=== PATIENT | female | born 2005 | race Caucasian/White ===

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

== ENCOUNTER 2024-05-25 06:00 | Emergency (ER) | payer BC, MEDICAID ==
[~2024-05-25] VITALS: Ht 157.5 cm; Wt 56.4 kg
[~2024-05-25 06:00] MED LIST changes: -DOXY-457 PO; -METR-159 PO; +ONDA-243 PO; -ONDA4TAB12 PO
[2024-05-25 06:18] LABS: BILIRUBIN,URINE NEGATIVE (Neg); CLARITY,URINE CLEAR (Clear); COLOR,URINE YELLOW (Yellow); GLUCOSE, URINE NEGATIVE (Neg); KETONES,URINE NEGATIVE (Neg); LEUKOCYTE ESTERASE ,URINE NEGATIVE (Neg); NITRITES, URINE NEGATIVE (Neg); OCCULT BLOOD,URINE NEGATIVE (Neg); PROTEIN,URINE NEGATIVE (Neg); UROBILINOGEN,URINE 0.2 E.U/dL (0.2-1.0)
[2024-05-25 06:19] LABS: UA COLLECTION TYPE NON-SPECIFIED
[2024-05-25 07:33] LABS: BASOPHILS % (AUTO) 0.2 % (0-1); EOSINOPHILS # (AUTO) 0.1 X10'3 (0-0.9); EOSINOPHILS % (AUTO) 0.7 % (0-6); HEMATOCRIT 33.3 % (35.0-45.0); HEMOGLOBIN 11.6 g/dl (12.0-16.0); LYMPHOCYTES # (AUTO) 1.2 X10'3 (1.1-4.8); MEAN CORPUSCULAR HEMOGLOBIN 29.2 PG (27.0-31.0); MEAN CORPUSCULAR VOLUME 83.6 FL (78-98); MEAN PLATELET VOLUME 7.1 FL (7.4-10.4); MONOCYTES # (AUTO) 0.8 X10'3 (0-0.9); MONOCYTES % (AUTO) 7.9 % (2-12); NEUTROPHILS # (AUTO) 7.8 X10'3 (1.8-7.7); NEUTROPHILS % (AUTO) 79.2 % (42-75); PLATELET COUNT 248 X10'3 (140-440); RED BLOOD COUNT 3.98 X10'6 (4.20-5.60); RED CELL DISTRIBUTION WIDTH 13.5 % (11.5-14.5); WHITE BLOOD COUNT 9.8 X10'3 (4.5-11.0)
[2024-05-25 07:48] LABS: ALBUMIN 3.1 G/DL (3.4-5.0); ANION GAP 9 (8-16); BLOOD UREA NITROGEN 9 MG/DL (7-18); BUN/CREATININE RATIO 16.7 (10.0-20.0); CHLORIDE 106 MMOL/L (99-107); CREATININE 0.54 MG/DL (0.40-0.90); GLUCOSE 94 MG/DL (70-104); LIPASE 38 U/L (16-77); POTASSIUM 3.5 MMOL/L (3.5-5.1); SODIUM 140 MMOL/L (135-145); TOTAL CARBON DIOXIDE 24.6 MMOL/L (24-32); eCRCL 131 ML/MIN; eGFR > 90 ML/MIN
[2024-05-25 07:55] LABS: CALCIUM 8.2 MG/DL (8.5-10.1)
[2024-05-25] MEDS ORDERED: ibuprofen 200mg tablet PO ONE (08:15)
[2024-05-25] MEDS: acetaminophen 325mg tablet PO ONE (08:40)
[2024-05-25 08:41] VITALS: BP 110/74; PULSE 78; RESP 14; TEMP 98.1; O2SAT 97
== END 2024-05-25 08:42 | disposition home or self-care (01) ==
LOC: ER 06:01
DX: R10.9 Unspecified abdominal pain (principal)
CPT/HCPCS: 36415; 76700; 80048; 81003; 83690; 85025; 99284

== ENCOUNTER 2024-06-18 01:19 | Emergency (ER) | payer BC, MEDICAID ==
[~2024-06-18] VITALS: Ht 157.5 cm; Wt 56.5 kg
[2024-06-18 01:21] VITALS: BP 100/68; PULSE 103; RESP 18; O2SAT 95
[2024-06-18 01:42] LABS: URINE HCG POSITIVE (NEG)
[2024-06-18 01:51] LABS: BILIRUBIN,URINE NEGATIVE (Neg); CLARITY,URINE CLOUDY (Clear); COLOR,URINE YELLOW (Yellow); GLUCOSE, URINE NEGATIVE (Neg); KETONES,URINE NEGATIVE (Neg); LEUKOCYTE ESTERASE ,URINE NEGATIVE (Neg); NITRITES, URINE NEGATIVE (Neg); OCCULT BLOOD,URINE NEGATIVE (Neg); PROTEIN,URINE NEGATIVE (Neg); UROBILINOGEN,URINE 0.2 E.U/dL (0.2-1.0)
[2024-06-18 01:55] LABS: BASOPHILS % (AUTO) 0.5 % (0-1); EOSINOPHILS % (AUTO) 0.2 % (0-6); HEMATOCRIT 35.8 % (35.0-45.0); HEMOGLOBIN 12.5 g/dl (12.0-16.0); LYMPHOCYTES % (AUTO) 12.7 % (21-51); MEAN CORPUSCULAR HEMOGLOBIN 29.5 PG (27.0-31.0); MEAN CORPUSCULAR HGB CONC 34.9 g/dL (33.0-36.5); MEAN CORPUSCULAR VOLUME 84.4 FL (78-98); MONOCYTES # (AUTO) 0.7 X10'3 (0-0.9); MONOCYTES % (AUTO) 9.7 % (2-12); NEUTROPHILS # (AUTO) 5.8 X10'3 (1.8-7.7); NEUTROPHILS % (AUTO) 76.9 % (42-75); PLATELET COUNT 193 X10'3 (140-440); RED BLOOD COUNT 4.24 X10'6 (4.20-5.60); RED CELL DISTRIBUTION WIDTH 13.4 % (11.5-14.5); WHITE BLOOD COUNT 7.5 X10'3 (4.5-11.0)
[2024-06-18 01:59] LABS: UA COLLECTION TYPE VOIDED
[2024-06-18 02:00] LABS: BACTERIA,URINE 1+ /HPF (Neg); RBC,URINE NONE SEEN /HPF (0-2); SQUAMOUS EPITHELIAL CELL,UR FEW /LPF (FEW)
[2024-06-18 02:01] LABS: AMORPHOUS PHOSPHATES 3+; WBC,URINE 0-4 /HPF (0-4)
[2024-06-18 02:09] LABS: ALANINE AMINOTRANSFERASE 18 U/L (12-78); ALBUMIN 3.1 G/DL (3.4-5.0); ALBUMIN/GLOBULIN RATIO 0.8 (1.1-1.5); ALKALINE PHOSPHATASE 90 IU/L (20-180); ANION GAP 9 (8-16); ASPARTATE AMINO TRANSFERASE 16 U/L (10-37); BILIRUBIN,TOTAL 0.3 MG/DL (0.1-1.0); CALCIUM 8.9 MG/DL (8.5-10.1); CHLORIDE 103 MMOL/L (99-107); CREATININE 0.51 MG/DL (0.40-0.90); GLUCOSE 78 MG/DL (70-104); LIPASE 36 U/L (16-77); SODIUM 136 MMOL/L (135-145); TOTAL CARBON DIOXIDE 23.6 MMOL/L (24-32); TOTAL PROTEIN 7.2 G/DL (6.4-8.2); eCRCL 139 ML/MIN; eGFR > 90 ML/MIN
[2024-06-18 02:13] LABS: BLOOD UREA NITROGEN 6 MG/DL (7-18); BUN/CREATININE RATIO 11.8 (10.0-20.0)
[2024-06-18 03:20] VITALS: TEMP 98
== END 2024-06-18 03:42 | disposition home or self-care (01) ==
LOC: ER 01:20
DX: O26.91 Pregnancy related conditions, unspecified, first trimester (principal); Z3A.12 12 weeks gestation of pregnancy; Z79.899 Other long term (current) drug therapy
CPT/HCPCS: 36415; 80053; 81001; 81025; 83690; 85025; 99283

== ENCOUNTER 2024-08-18 00:07 | Emergency (ER) | payer BC, MEDICAID ==
[~2024-08-18] VITALS: Ht 157.5 cm; Wt 62.5 kg
[2024-08-18 00:15] VITALS: BP 112/98; PULSE 98; RESP 18; TEMP 97.3; O2SAT 97
[2024-08-18 01:00] LABS: BILIRUBIN,URINE NEGATIVE (Neg); CLARITY,URINE SLIGHTLY CLOUDY (Clear); COLOR,URINE YELLOW (Yellow); GLUCOSE, URINE NEGATIVE (Neg); KETONES,URINE NEGATIVE (Neg); LEUKOCYTE ESTERASE ,URINE NEGATIVE (Neg); NITRITES, URINE NEGATIVE (Neg); OCCULT BLOOD,URINE TRACE-INTACT (Neg); PROTEIN,URINE NEGATIVE (Neg); URINE HCG POSITIVE (NEG); UROBILINOGEN,URINE 0.2 E.U/dL (0.2-1.0)
[2024-08-18 01:22] LABS: UA COLLECTION TYPE NON-SPECIFIED
[2024-08-18 01:30] LABS: BACTERIA,URINE 3+ /HPF (Neg); RBC,URINE 0-2 /HPF (0-2); SQUAMOUS EPITHELIAL CELL,UR FEW /LPF (FEW); WBC,URINE 0-4 /HPF (0-4)
== END 2024-08-18 02:37 | disposition left against medical advice (07) ==
LOC: ER 00:08
DX: N93.9 Abnormal uterine and vaginal bleeding, unspecified (principal)
CPT/HCPCS: 81001; 81025

== ENCOUNTER 2025-05-02 19:07 | Emergency (ER) | payer MEDICAID ==
[~2025-05-02] VITALS: Ht 157.5 cm; Wt 59.5 kg
--- NOTE | 2025-05-02 19:15 | ELECTROCARDIOGRAPH REPORT ---
[facility] Test Date: 2025-05-02 Test Time: 19:13:06 Pat Name: LAKSHMI ROBB Department: EMERGENCY ROOM Room: Gender: F Business Office Specialist: TERE : 2005 Requested By: BRIDGETT HATFIELD Order Number: [id number] Reading MD: Dr. AB Perez Measurements Intervals [place] Rate: 118 P: 86 SC: 177 QRS: 265 QRSD: 101 T: 75 QT: 317 QTc: 445 Interpretive Statements Sinus tachycardia Right atrial enlargement Markedly posterior QRS axis Consider right ventricular hypertrophy Electronically Signed On 05-03-2025 17:27:[address] AB Perez Please click the below link to view image of tracing.
[2025-05-02 19:29] LABS: MEAN PLATELET VOLUME 7.5 FL (7.4-10.4); RED CELL DISTRIBUTION WIDTH 13.4 % (11.5-14.5)
[2025-05-02 19:46] LABS: URINE HCG NEGATIVE (NEG)
[2025-05-02 19:48] LABS: CREATININE 0.66 MG/DL (0.40-0.90); TOTAL CARBON DIOXIDE 20.3 MMOL/L (24-32); eCRCL 107 ML/MIN; eGFR > 90 ML/MIN
[2025-05-02 19:54] LABS: PRO BRAIN NATRIURETIC PEPTIDE 35 PG/ML (0-125)
[2025-05-02 19:55] LABS: LEUKOCYTE ESTERASE ,URINE NEGATIVE (Neg); NITRITES, URINE NEGATIVE (Neg); OCCULT BLOOD,URINE MODERATE (Neg)
[2025-05-02 20:04] LABS: UA COLLECTION TYPE CLN CATCH MIDSTREAM
[2025-05-02 20:05] LABS: MUCUS STRANDS FEW /LPF (Neg); SQUAMOUS EPITHELIAL CELL,UR MODERATE /LPF (FEW)
--- NOTE | 2025-05-02 20:59 | Physician Documentation ---
History of Present Illness ~ Chief Complaint: Palpitations Stated Complaint: PALPITATIONS Time Seen by MD: 19:52 Primary Medical Doctor: [facility] IN [place], [place] Mode of Arrival: POV HPI This is a 20-year-old female who presents with three days of nausea and vomiting along with generalized abdominal pain and generalized back pain starting today, patient reports that she vomits any time that she attempts to eat or drink anything. Patient additionally reports feeling of palpitations onset earlier today though currently not present. Patient reports no other acute symptoms or concerns. Medication Reconciliation Allergies: Coded Allergies: No Known Allergies (Unverified , 08/17/11) Scheduled Antihemophilic Factor/Vwf (Humate-P 2,400 Unit Vwf:Rco), 2,700 UNITS IVP ONCE, (Reported) Etonogestrel (Nexplanon), 68 MG SQ EVERY 3 YEARS, (Reported) Scheduled PRN ONDANSETRON ODT 4mg tablet (Ondansetron Odt), 1 TAB PO Q6H PRN PRN for nausea/vomiting Oxycodone HCl/Acetaminophen (Percocet 5-325 mg Tablet), 1 TAB PO TID PRN PRN for pelvic inflammatory disease Past Medical History Past Medical History: No Pertinent History Past Surgical History: no surgical history Alcohol Use: None Drug Use: none Lives with: Mother Lives In: Home Occupation: student, child Review of Systems ROS As stated above in the HPI, otherwise all systems are reviewed and negative. Physical Exam Vital Signs: Temperature: 98.3, Heart Rate: 111, Respiratory Rate: 16, BP: 117/78, Pulse Oximetry: 98, Weight: 59.500 Oxygen Flow Rate: 0 Physical Exam VITALS: Reviewed and as above. GENERAL: Alert, nontoxic appearing, no apparent distress. RESPIRATORY: No increased work of breathing, no respiratory distress, speaking in full clear sentences, clear lung sounds in all [place] CV: Regular rate and rhythm no murmur BACK: Generally tender to palpation, no focal tenderness, no CVA tenderness GI: Generalized abdominal tenderness to palpation, no rebound, no guarding, bowel sounds present SKIN: Warm and dry, no abdominal ecchymosis or erythema Progress Results/Orders Results/Orders Orders - ARIEL VERMA MD Monitor (05/02/25 19:09) Saline Lock (05/02/25 19:09) Oxygen (05/02/25 19:09) Hs Troponin I W Calculations (05/02/25 22:09) Completed Orders - ARIEL VERMA MD Cbc/Diff (05/02/25 19:09) PBNP (05/02/25 19:09) Electrocardiogram (05/02/25 19:09) Hs Troponin I W Calculations (05/02/25 19:09) Hs Troponin I W Calculations (05/02/25 21:09) Hcg, Ur Ql (05/02/25:25) CMP (05/02/25 19:16) Lipase (05/02/25 19:16) Ua W/Microscopic, Cult If Ind (05/02/25 19:21) Metoclopramide Inj (Reglan Inj) (05/03/25 00:10) Medications Received in ER Medications (Trade) Dose Ordered Sig/Rl Route PRN Reason Start Time Stop Time Status Last Admin Dose Admin (Zofran 4mg/2ml vial) 4 mg ONCE ONCE IV 05/02/25 21:00 05/02/25 21:02 DC 05/02/25 22:14 4 MG (0.9% sodium chloride (NS) 1000ml IV soln) 1,000 ml ONCE ONCE IVB 05/02/25 21:00 05/02/25 21:02 DC 05/02/25 23:22 1,000 ML Dextrose 1,000 ml @ 1,000 mls/hr Q1H ONCE IV 05/02/25 21:10 05/02/25 22:09 DC 05/02/25 22:14 1,000 MLS/HR Acetaminophen 100 ml @ 400 mls/hr ONCE ONCE IV 05/02/25 21:30 05/02/25 21:44 DC 05/02/25 21:37 400 MLS/HR (Toradol injection) 15 mg ONCE ONCE IM 05/02/25 23:00 05/02/25 23:04 DC 05/02/25 23:17 15 MG (Zofran 4mg/2ml vial) 4 mg ONCE ONCE IV 05/02/25 23:05 05/02/25 23:12 DC 05/02/25 23:17 4 MG (Reglan inj) 5 mg ONCE ONCE IV 05/03/25 00:10 05/03/25 00:11 DC 05/03/25 00:35 5 MG Vital Signs 05/02/25 05/02/25 05/02/25 05/02/25 19:15 19:46 22:22 23:23 Temp 98.3 98.3 98.3 Pulse 111 79 85 Resp 16 17 14 B/P (MAP) 117/78 107/75 (86) 108/70 (83) Pulse Ox 98 99 98 O2 Flow Rate 0 0 0 05/03/25 00:20 Temp 98.3 Pulse 70 Resp 13 B/P (MAP) 110/75 (87) Pulse Ox 99 O2 Flow Rate 0 Laboratory Tests Test 05/02/25 19:16 05/02/25 19:21 05/02/25 21:37 05/03/25 00:03 White Blood Count 8.7 Red Blood Count 4.91 Hemoglobin 13.4 Hematocrit 41.0 Mean Corpuscular Volume 83.4 Mean Corpuscular Hemoglobin 27.3 Mean Corpuscular Hemoglobin Concent 32.8 L Red Cell Distribution Width 13.4 Platelet Count 298 Mean Platelet Volume 7.5 Neutrophils (%) (Auto) 82.2 H Lymphocytes (%) (Auto) 11.1 L Monocytes (%) (Auto) 6.4 Eosinophils (%) (Auto) 0 Basophils (%) (Auto) 0.3 Neutrophils # (Auto) 7.1 Lymphocytes # (Auto) 1.0 L Monocytes # (Auto) 0.6 Eosinophils # (Auto) 0.0 Basophils # (Auto) 0.0 CBC Comment Sodium Level 140 Potassium Level 3.6 Chloride Level 102 Carbon Dioxide Level 20.3 L Anion Gap 18 H Blood Urea Nitrogen 19 H Creatinine 0.66 Estimated GFR/1.73 m2 > 90 BUN/Creatinine Ratio 28.8 H Glucose Level 59 L Calcium Level 9.3 Total Bilirubin 1.0 Aspartate Amino Transf (AST/SGOT) 18 Alanine Aminotransferase (ALT/SGPT) 17 Alkaline Phosphatase 119 H Troponin I High Sensitivity < 4 L 4 Troponin I High Sens Percent Delta Troponin I Hi Sens Absolute Change Pro-B-Type Natriuretic Peptide 35 Total Protein 8.9 H Albumin 4.4 Globulin 4.5 H Albumin/Globulin Ratio 1.0 L Lipase 22 Chemistry Comments Urine Specimen Description Cln catch midstream Urine Color Yellow Urine Clarity Clear Urine pH 6.0 Urine Specific [place] >=1.030 Urine Protein Trace Urine Glucose (UA) Negative Urine Ketones >=80 Urine Occult Blood Moderate H Urine Nitrite Negative Urine Bilirubin Small Urine Urobilinogen 0.2 Urine Leukocyte Esterase Negative Urine RBC 3-10 Urine WBC 0-4 Urine Squamous Epithelial Cells Moderate Urine Bacteria None seen Urine Mucus Few Urine Culture Indicated Not ind Volume Urine Centrifuged 10 ml Urine HCG, Qualitative Negative Urine Comment Glucometer 215 H Test 05/03/25 01:12 Glucometer 161 H EKG/XRAY/CT/US/VASC/MRI EKG : Additional Comment EKG at 1913 interpreted by myself as sinus tachycardia at a rate of 118, normal axis,non-specific ST-T segment changes Medical Decision Making Additional information obtaine: old records Findings This 20-year-old female presented with three days of nausea and vomiting follo wed by one day of generalized abdominal and back pain along with feeling of palpitations earlier today, patient was found to be dehydrated based on physical exam and lab work. Patient was otherwise well-appearing and hemodynamically stable, patient rehydrated and provided IV glucose as she was somewhat hypoglycemic. Dr. Verma: Assumed care of patient. Additional antiemetics administered and patient is now feeling better tolerating p.o. asking to leave. Asked her if she has a prescription for any nausea medicines and she states that she does not. Differential Dx:Considerations: Include: angina / TN, atrial dysrhythmia, atrial fibrillation, atrial flutter, PSVT, sinus tachycardia, WPW, PVCs, ventricular fibrillation, ventricular tachycardia Differential Dx:Considerations: Include anxiety/panic attack, Include electrolyte disorder, Include hyperthyroidism Departure Disposition: 01 HOME / SELF CARE / HOMELESS Impression: Primary Impression: Vomiting Condition: Improved Discharge Instructions: Nausea and Vomiting, Adult Referrals: NO PRIMARY CARE PROVIDER (PCP) Signature Scribe Signature: No scribe Attestation: The note accurately reflects work and decisions made by me.Ariel Verma MD 05/03/25 01:37 PARRISH MANZANARES May 02, 2025 20:59 ARIEL VERMA MD May 03, 2025 01:38
[2025-05-02] MEDS: acetaminophen 1,000mg/100ml IV 100 ML IV ONE ×2 (21:00→21:37)
[2025-05-02] MEDS: ondansetron/PF 4mg/2ml inj IV ONE ×2 (22:14→23:17)
[2025-05-02] MEDS: ketorolac trometh 15mg/ml vial 15 MG/ML ML IM ONE (23:17)
[2025-05-02] MEDS: normal saline 1000ML IV soln IVB ONE (23:22)
[2025-05-03 00:20] VITALS: BP 110/75; PULSE 70; RESP 13; O2SAT 99
[2025-05-03] MEDS: metoclopramide 5 mg/ml inj IV ONE (00:35)
[2025-05-03 01:49] VITALS: TEMP 98.3
== END 2025-05-03 01:56 | disposition home or self-care (01) ==
LOC: ER 19:08
DX: R11.2 Nausea with vomiting, unspecified (principal); M54.9 Dorsalgia, unspecified; R06.02 Shortness of breath; Z79.899 Other long term (current) drug therapy
CPT/HCPCS: 36415; 80053; 81001; 81025; 82948; 83690; 83880; 84484; 85025; 93005; 96361; 96365; 96368; 96372; 96375; 99285; J0131; J1885; J2405; J2765; J7030; J7070